=== PATIENT | male | born 1980 | race Caucasian/White ===

== ENCOUNTER 2021-03-29 09:58 | Inpatient (IN) | payer MEDICARE, MEDICAID ==
[~2021-03-29] VITALS: Ht 193 cm; Wt 123.9 kg
[~2021-03-29 09:58] MED LIST: NOCURR
[2021-03-29 12:06] LABS: BASOPHILS % (AUTO) 0.6 % (0.0-2.0); EOSINOPHILS % (AUTO) 0.9 % (1.0-6.0); HEMATOCRIT 40.2 % (41-53); HEMOGLOBIN 13.7 g/dL (13.5-17.5); LYMPHOCYTES # (AUTO) 2.3 K/uL (1.0-4.8); LYMPHOCYTES % (AUTO) 31.2 % (22.0-44.0); MEAN CORPUSCULAR HEMOGLOBIN 29.4 pg (26.0-34.0); MEAN CORPUSCULAR HGB CONC 33.9 G/dL (31.0-37.0); MEAN CORPUSCULAR VOLUME 87 fL (80-100); MONOCYTES # (AUTO) 0.5 K/uL (0.1-1.0); MONOCYTES % (AUTO) 6.8 % (2.0-9.0); NEUTROPHILS # (AUTO) 4.5 K/uL (1.8-7.7); NEUTROPHILS % (AUTO) 60.5 % (40.0-70.0); PLATELET COUNT (AUTO) 319 K/uL (150-450); RED BLOOD CELL COUNT(AUTO) 4.65 MIL/uL (4.50-5.90)
[2021-03-29 12:15] LABS: ANION GAP 7 mmol/L (8-16); CALCIUM, TOTAL 8.5 mg/dL (8.8-10.5); CARBON DIOXIDE 27 mmol/L (22-29); CHLORIDE 107 mmol/L (98-107); CREATININE 1.16 mg/dL (0.60-1.30); GLOMERULAR FILTR. RATE CALC > 60 mL/min (>60); GLUCOSE,RANDOM 89 mg/dL (70-110); POTASSIUM 4.3 mmol/L (3.5-5.1); SODIUM SERUM 141 mmol/L (136-145); UREA NITROGEN, BLOOD 13 mg/dL (7-18)
[2021-03-29 12:21] LABS: ACETAMINOPHEN < 2 mcg/mL (10-30); ALANINE AMINOTRANSFERASE 25 U/L (12-78); ALBUMIN 3.9 g/dL (3.4-5.0); ALKALINE PHOSPHATASE 69 U/L (46-116); ASPARTATE AMINOTRANSFERASE 15 U/L (15-37); BILIRUBIN,TOTAL 0.3 mg/dL (0.1-1.0); TOTAL PROTEIN, SERUM 7.8 g/dL (6.4-8.2)
[2021-03-29 12:28] LABS: SALICYLATE 0.6 mg/dL (2.8-20.0)
[2021-03-29 15:14] LABS: COVID AG,FIA SOURCE NASOPHARYNGEAL
[2021-03-29] MEDS ORDERED: HALOPERIDOL 5 MG TABLET PO PRN (17:15)
[2021-03-29] MEDS ORDERED: ZOLPIDEM TARTRATE 10 MG TABLET PO PRN (17:15)
[2021-03-30 01:12] LABS: CHOL/HDL RATIO 4.5 (4.2-7.3); CHOLESTEROL 188 mg/dL (131-200); FREE T4 (FREE THYROXINE) 0.98 ng/dL (0.76-1.46); HDL CHOLESTEROL 42 mg/dL (40-60); LDL CHOL (CALC.) 119 mg/dL (0-130); THYROID STIMULATING HORMONE 1.15 uIU/mL (0.36-3.74); TRIGLYCERIDES 135 mg/dL (15-150)
[2021-03-30] MEDS ORDERED: LOPERAMIDE HCL 2 MG CAPSULE PO PRN (07:30)
[2021-03-30] MEDS ORDERED: ALBUTEROL SULFATE HFA 90 MCG/PUFF 8 GM INHALER IH PRN (07:30)
[2021-03-30] MEDS ORDERED: DOCUSATE SODIUM 100 MG CAPSULE PO PRN (07:30)
[2021-03-30] MEDS ORDERED: MAGNESIUM HYDROXIDE SUSPENSION 30 ML UDCUP PO PRN (07:30)
[2021-03-30] MEDS ORDERED: PETROLATUM,WHITE 28 GM JELLY TP PRN (07:30)
[2021-03-30] MEDS ORDERED: GuaiFENesin/D-METHORPHAN [SUGAR-FREE] 200-20MG/10 ML SYRUP UDCUP PO PRN (07:30)
[2021-03-30] MEDS ORDERED: CloNIDine HCL 0.1 MG TABLET PO PRN (07:30)
[2021-03-30] MEDS ORDERED: NICOTINE 14 MG/24 HOUR PATCH TD PRN (07:30)
[2021-03-30] MEDS ORDERED: ONDANSETRON HCL 4 MG TABLET PO PRN (07:30)
[2021-03-30] MEDS ORDERED: ACETAMINOPHEN 325 MG TABLET PO PRN (07:30)
[2021-03-30 09:25] VITALS: BP 126/87
[2021-03-30 09:34] VITALS: BP 126/87
[2021-03-30] MEDS: IBUPROFEN 400 MG TABLET PO PRN ×2 (09:36→09:37)
[2021-03-30 09:37] VITALS: BP 126/87
[2021-03-30] MEDS ORDERED: INFLUENZA VIRUS VACCINE QVS 2021-22 (6MO+)/PF 60 MCG/0.5 ML SYRINGE IM. ONE (10:30)
[2021-03-30 16:06] VITALS: BP 104/68
[2021-03-30] MEDS: RisperiDONE 2 MG TABLET PO SCH (20:51)
[2021-03-30] MEDS: DIVALPROEX SODIUM 500 MG DR TABLET PO SCH (20:51)
[2021-03-31 07:20] LABS: BASOPHILS % (AUTO) 0.6 % (0.0-2.0); EOSINOPHILS % (AUTO) 1.5 % (1.0-6.0); HEMATOCRIT 39.8 % (41-53); HEMOGLOBIN 13.7 g/dL (13.5-17.5); LYMPHOCYTES % (AUTO) 32.3 % (22.0-44.0); MEAN CORPUSCULAR HEMOGLOBIN 29.5 pg (26.0-34.0); MEAN CORPUSCULAR HGB CONC 34.3 G/dL (31.0-37.0); MEAN CORPUSCULAR VOLUME 86 fL (80-100); MONOCYTES # (AUTO) 0.4 K/uL (0.1-1.0); MONOCYTES % (AUTO) 6.3 % (2.0-9.0); NEUTROPHILS # (AUTO) 3.7 K/uL (1.8-7.7); NEUTROPHILS % (AUTO) 59.3 % (40.0-70.0); PLATELET COUNT (AUTO) 267 K/uL (150-450); RED BLOOD CELL COUNT(AUTO) 4.63 MIL/uL (4.50-5.90); RED CELL DISTRIBUTION WIDTH 13.9 % (11.5-14.5)
[2021-03-31] MEDS: DIVALPROEX SODIUM 500 MG DR TABLET PO SCH ×2 (08:33→20:44)
[2021-03-31] MEDS: RisperiDONE 2 MG TABLET PO SCH ×2 (08:33→20:45)
[2021-03-31 08:44] VITALS: BP 118/59
[2021-03-31 16:43] VITALS: BP 138/89
[2021-04-01] MEDS: RisperiDONE 2 MG TABLET PO SCH ×2 (08:44→20:56)
[2021-04-01] MEDS: DIVALPROEX SODIUM 500 MG DR TABLET PO SCH ×2 (08:44→20:56)
[2021-04-01] MEDS: LORazepam 2 MG TABLET PO PRN (08:45)
[2021-04-01 09:26] VITALS: BP 95/61
[2021-04-01 16:09] VITALS: BP 130/99
[2021-04-02] MEDS: RisperiDONE 2 MG TABLET PO SCH ×2 (09:45→20:08)
[2021-04-02] MEDS: DIVALPROEX SODIUM 500 MG DR TABLET PO SCH ×2 (09:45→20:08)
[2021-04-02] MEDS: MAG HYDROX/AL HYDROX/SIMETH ES 30 ML SUSPENSION UDCUP PO PRN (11:39)
[2021-04-02 16:13] VITALS: BP 128/87
[2021-04-03 09:05] VITALS: BP 130/89
[2021-04-03] MEDS: RisperiDONE 2 MG TABLET PO SCH ×2 (10:40→20:19)
[2021-04-03] MEDS: DIVALPROEX SODIUM 500 MG DR TABLET PO SCH ×2 (10:40→20:19)
[2021-04-03 16:09] VITALS: BP 123/78
[2021-04-04] MEDS: MAG HYDROX/AL HYDROX/SIMETH ES 30 ML SUSPENSION UDCUP PO PRN (06:58)
[2021-04-04 08:54] VITALS: BP 110/75
[2021-04-04] MEDS: RisperiDONE 2 MG TABLET PO SCH ×2 (09:16→20:36)
[2021-04-04] MEDS: DIVALPROEX SODIUM 500 MG DR TABLET PO SCH ×2 (09:16→20:36)
[2021-04-04 09:53] LABS: COVID AG,FIA SOURCE NASAL SWAB
[2021-04-04 16:59] VITALS: BP 131/81
[2021-04-05 06:17] VITALS: BP 115/67
[2021-04-05] MEDS: RisperiDONE 2 MG TABLET PO SCH ×2 (08:12→20:47)
[2021-04-05] MEDS: DIVALPROEX SODIUM 500 MG DR TABLET PO SCH ×2 (08:12→20:47)
[2021-04-05 08:47] VITALS: BP 145/93
[2021-04-05 16:28] VITALS: BP 121/69
[2021-04-05] MEDS: MAG HYDROX/AL HYDROX/SIMETH ES 30 ML SUSPENSION UDCUP PO PRN (17:20)
[2021-04-06 08:05] VITALS: BP 113/71
[2021-04-06] MEDS: RisperiDONE 2 MG TABLET PO SCH ×2 (08:51→20:24)
[2021-04-06] MEDS: DIVALPROEX SODIUM 500 MG DR TABLET PO SCH ×2 (08:51→20:24)
[2021-04-06 16:09] VITALS: BP 131/88
[2021-04-07] MEDS: DIVALPROEX SODIUM 500 MG DR TABLET PO SCH ×2 (08:43→20:41)
[2021-04-07] MEDS: RisperiDONE 2 MG TABLET PO SCH ×2 (08:43→20:42)
[2021-04-07] MEDS: THIAMINE 100 MG TABLET PO SCH (08:43)
[2021-04-07 10:46] VITALS: BP 135/79
[2021-04-07 16:30] VITALS: BP 101/62
[2021-04-08 08:00] VITALS: BP 117/68
[2021-04-08] MEDS: DIVALPROEX SODIUM 500 MG DR TABLET PO SCH ×2 (08:22→20:48)
[2021-04-08] MEDS: THIAMINE 100 MG TABLET PO SCH (08:22)
[2021-04-08] MEDS: RisperiDONE 2 MG TABLET PO SCH ×2 (08:22→20:48)
[2021-04-08 16:28] VITALS: BP 112/68
[2021-04-09 08:07] VITALS: BP 125/69
[2021-04-09] MEDS: DIVALPROEX SODIUM 500 MG DR TABLET PO SCH ×2 (08:56→20:53)
[2021-04-09] MEDS: RisperiDONE 2 MG TABLET PO SCH ×2 (08:56→20:53)
[2021-04-09] MEDS: THIAMINE 100 MG TABLET PO SCH (08:56)
[2021-04-09 16:52] VITALS: BP 109/68
[2021-04-10 05:16] VITALS: BP 117/80
[2021-04-10 09:00] VITALS: BP 108/76
[2021-04-10] MEDS: RisperiDONE 2 MG TABLET PO SCH ×2 (09:03→20:09)
[2021-04-10] MEDS: DIVALPROEX SODIUM 500 MG DR TABLET PO SCH ×2 (09:03→20:09)
[2021-04-10] MEDS: THIAMINE 100 MG TABLET PO SCH (09:04)
[2021-04-10] MEDS: IBUPROFEN 400 MG TABLET PO PRN (12:34)
[2021-04-10 12:35] VITALS: BP 140/81
[2021-04-10 13:39] VITALS: BP 128/78
[2021-04-10 16:01] VITALS: BP 97/67
[2021-04-10] MEDS: MAG HYDROX/AL HYDROX/SIMETH ES 30 ML SUSPENSION UDCUP PO PRN (23:09)
[2021-04-11] MEDS: DIVALPROEX SODIUM 500 MG DR TABLET PO SCH ×2 (08:40→20:15)
[2021-04-11] MEDS: RisperiDONE 2 MG TABLET PO SCH ×2 (08:40→20:15)
[2021-04-11 09:50] VITALS: BP 115/55
[2021-04-11] MEDS: THIAMINE 100 MG TABLET PO SCH (10:05)
[2021-04-11] MEDS: LORazepam 2 MG TABLET PO PRN (15:55)
[2021-04-11 16:10] VITALS: BP 125/81
[2021-04-11 18:25] LABS: COVID AG,FIA SOURCE NASAL SWAB
[2021-04-12 08:30] VITALS: BP 127/66
[2021-04-12] MEDS: RisperiDONE 2 MG TABLET PO SCH ×2 (08:43→20:52)
[2021-04-12] MEDS: THIAMINE 100 MG TABLET PO SCH (08:43)
[2021-04-12] MEDS: DIVALPROEX SODIUM 500 MG DR TABLET PO SCH ×2 (08:43→20:52)
[2021-04-12 17:10] VITALS: BP 106/67
[2021-04-13 04:23] VITALS: BP 139/80
[2021-04-13 08:00] VITALS: BP 120/88
[2021-04-13] MEDS: THIAMINE 100 MG TABLET PO SCH (08:18)
[2021-04-13] MEDS: DIVALPROEX SODIUM 500 MG DR TABLET PO SCH ×2 (08:18→20:38)
[2021-04-13] MEDS: RisperiDONE 2 MG TABLET PO SCH ×2 (08:18→20:38)
[2021-04-13 16:26] VITALS: BP 115/78
[2021-04-14] MEDS: RisperiDONE 2 MG TABLET PO SCH ×2 (08:05→20:33)
[2021-04-14] MEDS: DIVALPROEX SODIUM 500 MG DR TABLET PO SCH ×2 (08:06→20:33)
[2021-04-14] MEDS: THIAMINE 100 MG TABLET PO SCH (08:06)
[2021-04-14 08:51] VITALS: BP 115/77
[2021-04-14 16:17] VITALS: BP 115/70
[2021-04-15 08:00] VITALS: BP 116/76
[2021-04-15] MEDS: DIVALPROEX SODIUM 500 MG DR TABLET PO SCH ×2 (08:02→20:35)
[2021-04-15] MEDS: THIAMINE 100 MG TABLET PO SCH (08:02)
[2021-04-15] MEDS: RisperiDONE 2 MG TABLET PO SCH ×2 (08:02→20:35)
[2021-04-15 16:13] VITALS: BP 112/74
[2021-04-16] MEDS: THIAMINE 100 MG TABLET PO SCH (08:12)
[2021-04-16] MEDS: RisperiDONE 2 MG TABLET PO SCH ×2 (08:13→20:34)
[2021-04-16] MEDS: DIVALPROEX SODIUM 500 MG DR TABLET PO SCH ×2 (08:14→20:34)
[2021-04-16 08:24] VITALS: BP 130/84
[2021-04-16 16:17] VITALS: BP 128/79
[2021-04-16] MEDS: MAG HYDROX/AL HYDROX/SIMETH ES 30 ML SUSPENSION UDCUP PO PRN (18:43)
[2021-04-17] MEDS: DIVALPROEX SODIUM 500 MG DR TABLET PO SCH (08:12)
[2021-04-17] MEDS: RisperiDONE 2 MG TABLET PO SCH (08:12)
[2021-04-17] MEDS: THIAMINE 100 MG TABLET PO SCH (08:20)
[2021-04-17 08:46] VITALS: BP 118/72
[2021-04-17] MEDS ORDERED: RISP2TAB76 PO (10:36)
[2021-04-17] MEDS ORDERED: DIVA-112 PO (10:36)
== END 2021-04-17 13:25 | disposition home or self-care (01) | DRG 885 ==
LOC: EMS 10:57 → 3EX 03-30 06:17
PROVIDERS: ADMIT Psychiatry & Neurology Psychiatry; ATTEND Psychiatry & Neurology Psychiatry
DX: F25.0 Schizoaffective disorder, bipolar type (principal); F33.2 Major depressive disorder, recurrent severe without psychotic features; R45.851 Suicidal ideations; E66.9 Obesity, unspecified; E78.5 Hyperlipidemia, unspecified; Z20.822 Contact with and (suspected) exposure to COVID-19; F41.9 Anxiety disorder, unspecified; F10.10 Alcohol abuse, uncomplicated; F17.200 Nicotine dependence, unspecified, uncomplicated; D64.9 Anemia, unspecified; Z68.32 Body mass index [BMI] 32.0-32.9, adult; Z79.899 Other long term (current) drug therapy; Z59.00 Homelessness unspecified; Z71.41 Alcohol abuse counseling and surveillance of alcoholic; Z71.6 Tobacco abuse counseling
CPT/HCPCS: 80053; 80061; 80164; 84439; 84443; 85025; 93005; 99285; G0378; G0480; G0481

== ENCOUNTER 2021-11-18 12:48 | Inpatient (IN) | payer MEDICARE, MEDICAID ==
[~2021-11-18] VITALS: Ht 193 cm; Wt 129.0 kg
[~2021-11-18 12:48] MED LIST changes: +DIVA-112 PO; -NOCURR; +RISP2TAB76 PO
[2021-11-18] MEDS ORDERED: HALOPERIDOL 5 MG TABLET PO PRN (14:45)
[2021-11-18] MEDS ORDERED: ZOLPIDEM TARTRATE 10 MG TABLET PO PRN (14:45)
[2021-11-18 15:53] LABS: APPEARANCE,URINE CLEAR (CLEAR); BILIRUBIN,URINE NEGATIVE (NEGATIVE); GLUCOSE, URINE (UA) NEGATIVE (NEGATIVE); KETONES,URINE NEGATIVE (NEGATIVE); LEUKOCYTE ESTERASE ,URINE NEGATIVE (NEGATIVE); NITRATE,URINE NEGATIVE (NEGATIVE); OCCULT BLOOD,URINE NEGATIVE (NEGATIVE); PH,URINE 5.5 (5.0-8.0); PROTEIN,URINE TRACE mg/dL (NEGATIVE); SPECIFIC GRAVITIY, URINE 1.031 (1.003-1.030); UROBILINOGEN,URINE <=1.0 mg/dL (<=1.0)
[2021-11-18 18:59] VITALS: BP 127/76
[2021-11-19 00:27] VITALS: BP 120/76
[2021-11-19 07:01] LABS: GLUCOMETER DEV NAME(LOC) POC.BV
[2021-11-19 08:00] VITALS: BP 105/62
[2021-11-19] MEDS: LORazepam 2 MG TABLET PO PRN (10:59)
[2021-11-19 12:00] VITALS: BP 105/60
[2021-11-19 14:44] VITALS: BP 105/70
[2021-11-19] MEDS ORDERED: CYANOCOBALAMIN 1,000 MCG/ML VIAL IM ONE (14:45)
[2021-11-19] MEDS ORDERED: OLANZapine 5 MG RAPDIS TABLET PO PRN (14:45)
[2021-11-19] MEDS ORDERED: ACETAMINOPHEN 325 MG TABLET PO PRN (14:45)
[2021-11-19] MEDS ORDERED: MAGNESIUM HYDROXIDE SUSPENSION 30 ML UDCUP PO PRN (14:45)
[2021-11-19] MEDS ORDERED: HydrOXYzine PAMOATE 50 MG CAPSULE PO PRN (14:45)
[2021-11-19] MEDS ORDERED: GuaiFENesin/D-METHORPHAN [SUGAR-FREE] 200-20MG/10 ML SYRUP UDCUP PO PRN (14:45)
[2021-11-19] MEDS ORDERED: LOPERAMIDE HCL 2 MG CAPSULE PO PRN (14:45)
[2021-11-19] MEDS ORDERED: MAG HYDROX/AL HYDROX/SIMETH ES 30 ML SUSPENSION UDCUP PO PRN (14:45)
[2021-11-19] MEDS ORDERED: TUBERCULIN, PURIFIED PROTEIN DERIVATIVE 5 TU/0.1 ML SYRINGE ID ONE (14:45)
[2021-11-19] MEDS ORDERED: PROMETHAZINE HCL 25 MG TABLET PO PRN (14:45)
[2021-11-19 16:11] VITALS: BP 124/64
[2021-11-19] MEDS: THIAMINE 100 MG TABLET PO SCH (16:11)
[2021-11-19] MEDS: MELATONIN 5 MG TABLET PO SCH (20:48)
[2021-11-19] MEDS ORDERED: OLANZapine 5 MG RAPDIS TABLET PO SCH (21:00)
[2021-11-20 00:19] VITALS: BP 128/67
[2021-11-20] MEDS ORDERED: IBUPROFEN 600 MG TABLET PO PRN ×2 (01:00)
[2021-11-20] MEDS ORDERED: ACETAMINOPHEN 325 MG TABLET PO PRN ×2 (01:00)
[2021-11-20 07:05] LABS: APPEARANCE,URINE HAZY (CLEAR); BILIRUBIN,URINE NEGATIVE (NEGATIVE); GLUCOSE, URINE (UA) NEGATIVE (NEGATIVE); KETONES,URINE NEGATIVE (NEGATIVE); LEUKOCYTE ESTERASE ,URINE NEGATIVE (NEGATIVE); NITRATE,URINE NEGATIVE (NEGATIVE); OCCULT BLOOD,URINE NEGATIVE (NEGATIVE); PROTEIN,URINE TRACE mg/dL (NEGATIVE); SPECIFIC GRAVITIY, URINE 1.027 (1.003-1.030); UROBILINOGEN,URINE <=1.0 mg/dL (<=1.0)
[2021-11-20 07:05] LABS: BASOPHILS % (AUTO) 0.6 % (0.0-2.0); EOSINOPHILS % (AUTO) 2.4 % (1.0-6.0); HEMATOCRIT 38.9 % (41-53); HEMOGLOBIN 13.5 g/dL (13.5-17.5); LYMPHOCYTES # (AUTO) 2.1 K/uL (1.0-4.8); LYMPHOCYTES % (AUTO) 37.5 % (22.0-44.0); MEAN CORPUSCULAR HEMOGLOBIN 28.8 pg (26.0-34.0); MEAN CORPUSCULAR HGB CONC 34.8 G/dL (31.0-37.0); MEAN CORPUSCULAR VOLUME 83 fL (80-100); MONOCYTES # (AUTO) 0.5 K/uL (0.1-1.0); MONOCYTES % (AUTO) 8.9 % (2.0-9.0); NEUTROPHILS # (AUTO) 2.8 K/uL (1.8-7.7); NEUTROPHILS % (AUTO) 50.6 % (40.0-70.0); PLATELET COUNT (AUTO) 311 K/uL (150-450); RED CELL DISTRIBUTION WIDTH 13.5 % (11.5-14.5)
[2021-11-20 07:16] LABS: AMPHET/METH SCREEN,URINE NEGATIVE (NEGATIVE); BARBITURATE SCREEN, URINE NEGATIVE (NEGATIVE); BENZODIAZEPINES SCREEN,URINE NEGATIVE (NEGATIVE); CANNABINOID SCREEN,URINE NEGATIVE (NEGATIVE); COCAINE SCREEN,URINE NEGATIVE (NEGATIVE); METHADONE SCREEN, URINE NEGATIVE (NEGATIVE); OPIATE SCREEN,URINE NEGATIVE (NEGATIVE)
[2021-11-20 07:17] LABS: PHENCYCLIDINE SCREEN,URINE NEGATIVE (NEGATIVE)
[2021-11-20 07:22] LABS: HEMOGLOBIN A1C 5.6 % (3.8-5.6)
[2021-11-20 07:45] LABS: ALANINE AMINOTRANSFERASE 46 U/L (12-78); ALBUMIN 3.5 g/dL (3.4-5.0); ALKALINE PHOSPHATASE 69 U/L (46-116); ANION GAP 9 mmol/L (8-16); ASPARTATE AMINOTRANSFERASE 23 U/L (15-37); BILIRUBIN,TOTAL 0.2 mg/dL (0.1-1.0); CALCIUM, TOTAL 8.8 mg/dL (8.8-10.5); CARBON DIOXIDE 26 mmol/L (22-29); CHLORIDE 104 mmol/L (98-107); CHOLESTEROL 154 mg/dL (131-200); CREATININE 1.02 mg/dL (0.60-1.30); GLOMERULAR FILTR. RATE CALC > 60 mL/min (>60); GLUCOSE,RANDOM 88 mg/dL (70-110); SODIUM SERUM 139 mmol/L (136-145); TOTAL PROTEIN, SERUM 7.1 g/dL (6.4-8.2); TRIGLYCERIDES 139 mg/dL (15-150); UREA NITROGEN, BLOOD 9 mg/dL (7-18)
[2021-11-20 07:46] LABS: CHOL/HDL RATIO 4.8 (4.2-7.3); FREE T4 (FREE THYROXINE) 1.07 ng/dL (0.76-1.46); HDL CHOLESTEROL 32 mg/dL (40-60); LDL CHOL (CALC.) 94 mg/dL (0-130); THYROID STIMULATING HORMONE 2.53 uIU/mL (0.36-3.74)
[2021-11-20 08:06] LABS: BACTERIA,URINE Few /HPF (None Seen); RBC,URINE None Seen /HPF (0-2); SQUAMOUS EPITHELIAL CELL,UR Few /LPF (None Seen); WBC,URINE None Seen /HPF (0-5)
[2021-11-20 08:32] VITALS: BP 96/58
[2021-11-20] MEDS: OMEGA-3/DHA/EPA/FISH OIL 1,000 MG CAPSULE PO SCH (08:36)
[2021-11-20] MEDS: THIAMINE 100 MG TABLET PO SCH ×2 (08:36→17:05)
[2021-11-20] MEDS: FOLIC ACID 1 MG TABLET PO SCH (08:37)
[2021-11-20] MEDS: MULTIVITAMINS WITH MINERALS, THERAPEUTIC TABLET PO SCH (08:37)
[2021-11-20] MEDS: NALTREXONE HCL 50 MG TABLET PO SCH (08:37)
[2021-11-20] MEDS: FLUoxetine HCL 20 MG CAPSULE PO SCH (08:37)
[2021-11-20 16:12] VITALS: BP 103/65
[2021-11-20] MEDS: MELATONIN 5 MG TABLET PO SCH (21:01)
[2021-11-20] MEDS: OLANZapine 10 MG RAPDIS TABLET PO SCH (21:02)
[2021-11-21 00:15] VITALS: BP 104/63
[2021-11-21 08:23] VITALS: BP 109/72
[2021-11-21] MEDS: FLUoxetine HCL 20 MG CAPSULE PO SCH (09:05)
[2021-11-21] MEDS: FOLIC ACID 1 MG TABLET PO SCH (09:05)
[2021-11-21] MEDS: MULTIVITAMINS WITH MINERALS, THERAPEUTIC TABLET PO SCH (09:05)
[2021-11-21] MEDS: THIAMINE 100 MG TABLET PO SCH ×2 (09:05→16:17)
[2021-11-21] MEDS: NALTREXONE HCL 50 MG TABLET PO SCH (09:05)
[2021-11-21] MEDS: OMEGA-3/DHA/EPA/FISH OIL 1,000 MG CAPSULE PO SCH (09:05)
[2021-11-21 14:46] VITALS: BP 104/66
[2021-11-21] MEDS: LORazepam 2 MG TABLET PO PRN (14:47)
[2021-11-21 16:13] VITALS: BP 109/67
[2021-11-21] MEDS: OLANZapine 10 MG RAPDIS TABLET PO SCH (20:09)
[2021-11-21] MEDS: MELATONIN 5 MG TABLET PO SCH (20:09)
[2021-11-22 00:23] VITALS: BP 110/68
[2021-11-22] MEDS: NALTREXONE HCL 50 MG TABLET PO SCH (08:48)
[2021-11-22] MEDS: FLUoxetine HCL 20 MG CAPSULE PO SCH (08:48)
[2021-11-22] MEDS: MULTIVITAMINS WITH MINERALS, THERAPEUTIC TABLET PO SCH (08:48)
[2021-11-22] MEDS: OMEGA-3/DHA/EPA/FISH OIL 1,000 MG CAPSULE PO SCH (08:48)
[2021-11-22] MEDS: FOLIC ACID 1 MG TABLET PO SCH (08:48)
[2021-11-22] MEDS: THIAMINE 100 MG TABLET PO SCH ×2 (08:49→16:16)
[2021-11-22 08:50] VITALS: BP 127/90
[2021-11-22] MEDS ORDERED: BISMUTH SUBSALICYLATE 262 MG CHEWABLE TABLET CHEW PRN (10:00)
[2021-11-22] MEDS ORDERED: LOPERAMIDE HCL 2 MG CAPSULE PO PRN (14:45)
[2021-11-22 16:15] VITALS: BP 121/68
[2021-11-22] MEDS: MELATONIN 5 MG TABLET PO SCH (20:23)
[2021-11-22] MEDS: OLANZapine 10 MG RAPDIS TABLET PO SCH (20:24)
[2021-11-23 01:38] VITALS: BP 125/77
[2021-11-23 03:06] LABS: HEPATITIS C AB (EIA) <0.1 s/co ratio (0.0-0.9)
[2021-11-23 08:40] VITALS: BP 123/82
[2021-11-23] MEDS: NALTREXONE HCL 50 MG TABLET PO SCH (08:55)
[2021-11-23] MEDS: OMEGA-3/DHA/EPA/FISH OIL 1,000 MG CAPSULE PO SCH (08:56)
[2021-11-23] MEDS: FLUoxetine HCL 20 MG CAPSULE PO SCH (08:56)
[2021-11-23] MEDS: MULTIVITAMINS WITH MINERALS, THERAPEUTIC TABLET PO SCH (08:56)
[2021-11-23] MEDS: FOLIC ACID 1 MG TABLET PO SCH (08:56)
[2021-11-23] MEDS: THIAMINE 100 MG TABLET PO SCH ×2 (08:56→17:04)
[2021-11-23] MEDS: LORazepam 2 MG TABLET PO PRN (17:14)
[2021-11-23 17:24] VITALS: BP 115/60
[2021-11-23] MEDS: OLANZapine 10 MG RAPDIS TABLET PO SCH (21:30)
[2021-11-23] MEDS: MELATONIN 5 MG TABLET PO SCH (21:30)
[2021-11-23] MEDS: DIVALPROEX SODIUM 500 MG ER TABLET PO SCH (21:30)
[2021-11-24 05:28] VITALS: BP 107/67
[2021-11-24] MEDS: NALTREXONE HCL 50 MG TABLET PO SCH (08:00)
[2021-11-24] MEDS: OMEGA-3/DHA/EPA/FISH OIL 1,000 MG CAPSULE PO SCH (08:00)
[2021-11-24] MEDS: MULTIVITAMINS WITH MINERALS, THERAPEUTIC TABLET PO SCH (08:00)
[2021-11-24] MEDS: FOLIC ACID 1 MG TABLET PO SCH (08:00)
[2021-11-24] MEDS: THIAMINE 100 MG TABLET PO SCH ×2 (08:00→16:49)
[2021-11-24] MEDS: FLUoxetine HCL 20 MG CAPSULE PO SCH (08:00)
[2021-11-24 08:31] VITALS: BP 110/66
[2021-11-24 16:56] VITALS: BP 125/70
[2021-11-24] MEDS: MELATONIN 5 MG TABLET PO SCH (21:31)
[2021-11-24] MEDS: OLANZapine 10 MG RAPDIS TABLET PO SCH (21:31)
[2021-11-24] MEDS: DIVALPROEX SODIUM 500 MG ER TABLET PO SCH (21:31)
[2021-11-25 02:00] VITALS: BP 112/69
[2021-11-25 08:57] VITALS: BP 112/62
[2021-11-25] MEDS: FLUoxetine HCL 20 MG CAPSULE PO SCH (09:00)
[2021-11-25] MEDS: NALTREXONE HCL 50 MG TABLET PO SCH (09:00)
[2021-11-25] MEDS: MULTIVITAMINS WITH MINERALS, THERAPEUTIC TABLET PO SCH (09:00)
[2021-11-25] MEDS: THIAMINE 100 MG TABLET PO SCH ×2 (09:00→16:33)
[2021-11-25] MEDS: FOLIC ACID 1 MG TABLET PO SCH (09:00)
[2021-11-25] MEDS: OMEGA-3/DHA/EPA/FISH OIL 1,000 MG CAPSULE PO SCH (09:01)
[2021-11-25 14:27] LABS: GLUCOMETER DEV NAME(LOC) POC.BV
[2021-11-25 16:11] VITALS: BP 129/70
[2021-11-25] MEDS: OLANZapine 10 MG RAPDIS TABLET PO SCH (20:34)
[2021-11-25] MEDS: DIVALPROEX SODIUM 500 MG ER TABLET PO SCH (20:34)
[2021-11-25] MEDS: MELATONIN 5 MG TABLET PO SCH (20:34)
[2021-11-25] MEDS ORDERED: BISACODYL 5 MG EC TABLET PO PRN (21:45)
[2021-11-26 01:00] VITALS: BP 136/64
[2021-11-26] MEDS: MULTIVITAMINS WITH MINERALS, THERAPEUTIC TABLET PO SCH (08:07)
[2021-11-26] MEDS: FLUoxetine HCL 20 MG CAPSULE PO SCH (08:07)
[2021-11-26] MEDS: OMEGA-3/DHA/EPA/FISH OIL 1,000 MG CAPSULE PO SCH (08:07)
[2021-11-26] MEDS: NALTREXONE HCL 50 MG TABLET PO SCH (08:07)
[2021-11-26] MEDS: FOLIC ACID 1 MG TABLET PO SCH (08:07)
[2021-11-26] MEDS: THIAMINE 100 MG TABLET PO SCH ×2 (08:07→16:17)
[2021-11-26 09:00] VITALS: BP 125/72
[2021-11-26 16:34] VITALS: BP 106/63
[2021-11-26] MEDS: OLANZapine 10 MG RAPDIS TABLET PO SCH (20:10)
[2021-11-26] MEDS: MELATONIN 5 MG TABLET PO SCH (20:10)
[2021-11-26] MEDS: DIVALPROEX SODIUM 500 MG ER TABLET PO SCH (20:10)
[2021-11-27 00:11] VITALS: BP 110/64
[2021-11-27 08:22] VITALS: BP 129/75
[2021-11-27] MEDS: OMEGA-3/DHA/EPA/FISH OIL 1,000 MG CAPSULE PO SCH (08:44)
[2021-11-27] MEDS: MULTIVITAMINS WITH MINERALS, THERAPEUTIC TABLET PO SCH (08:45)
[2021-11-27] MEDS: FLUoxetine HCL 20 MG CAPSULE PO SCH (08:45)
[2021-11-27] MEDS: FOLIC ACID 1 MG TABLET PO SCH (08:45)
[2021-11-27] MEDS: THIAMINE 100 MG TABLET PO SCH ×2 (08:45→16:41)
[2021-11-27] MEDS: NALTREXONE HCL 50 MG TABLET PO SCH (08:45)
[2021-11-27 16:12] VITALS: BP 102/61
[2021-11-27] MEDS: MELATONIN 5 MG TABLET PO SCH (20:38)
[2021-11-27] MEDS: OLANZapine 10 MG RAPDIS TABLET PO SCH (20:39)
[2021-11-27] MEDS: DIVALPROEX SODIUM 500 MG ER TABLET PO SCH (20:49)
[2021-11-28 04:13] VITALS: BP 126/88
[2021-11-28 08:53] VITALS: BP 150/91
[2021-11-28] MEDS: FLUoxetine HCL 20 MG CAPSULE PO SCH (08:59)
[2021-11-28] MEDS: OMEGA-3/DHA/EPA/FISH OIL 1,000 MG CAPSULE PO SCH (08:59)
[2021-11-28] MEDS: FOLIC ACID 1 MG TABLET PO SCH (09:00)
[2021-11-28] MEDS: NALTREXONE HCL 50 MG TABLET PO SCH (09:00)
[2021-11-28] MEDS: THIAMINE 100 MG TABLET PO SCH ×2 (09:00→17:46)
[2021-11-28] MEDS: MULTIVITAMINS WITH MINERALS, THERAPEUTIC TABLET PO SCH (09:00)
[2021-11-28 16:44] VITALS: BP 130/76
[2021-11-28 17:36] LABS: GLUCOMETER DEV NAME(LOC) POC.BV
[2021-11-28] MEDS: MELATONIN 5 MG TABLET PO SCH (20:51)
[2021-11-28] MEDS: OLANZapine 10 MG RAPDIS TABLET PO SCH (20:51)
[2021-11-28] MEDS: DIVALPROEX SODIUM 500 MG ER TABLET PO SCH (20:51)
[2021-11-29 05:32] VITALS: BP 127/82
[2021-11-29] MEDS: FLUoxetine HCL 20 MG CAPSULE PO SCH (08:52)
[2021-11-29] MEDS: OMEGA-3/DHA/EPA/FISH OIL 1,000 MG CAPSULE PO SCH (08:52)
[2021-11-29] MEDS: NALTREXONE HCL 50 MG TABLET PO SCH (08:52)
[2021-11-29] MEDS: MULTIVITAMINS WITH MINERALS, THERAPEUTIC TABLET PO SCH (08:52)
[2021-11-29] MEDS: THIAMINE 100 MG TABLET PO SCH (08:52)
[2021-11-29] MEDS: FOLIC ACID 1 MG TABLET PO SCH (08:52)
[2021-11-29 09:35] VITALS: BP 110/76
[2021-11-29 16:21] VITALS: BP 114/62
[2021-11-29] MEDS: DIVALPROEX SODIUM 500 MG ER TABLET PO SCH (21:09)
[2021-11-29] MEDS: OLANZapine 10 MG RAPDIS TABLET PO SCH (21:09)
[2021-11-29] MEDS: MELATONIN 5 MG TABLET PO SCH (21:09)
[2021-11-30 01:32] VITALS: BP 126/90
[2021-11-30 08:20] VITALS: BP 128/75
[2021-11-30] MEDS: MULTIVITAMINS WITH MINERALS, THERAPEUTIC TABLET PO SCH (08:23)
[2021-11-30] MEDS: FLUoxetine HCL 20 MG CAPSULE PO SCH (08:23)
[2021-11-30] MEDS: NALTREXONE HCL 50 MG TABLET PO SCH (08:23)
[2021-11-30] MEDS: OMEGA-3/DHA/EPA/FISH OIL 1,000 MG CAPSULE PO SCH (08:23)
[2021-11-30 08:41] VITALS: BP 128/75
[2021-11-30 16:11] VITALS: BP 112/68
[2021-11-30] MEDS: OLANZapine 10 MG RAPDIS TABLET PO SCH (20:09)
[2021-11-30] MEDS: DIVALPROEX SODIUM 500 MG ER TABLET PO SCH (20:09)
[2021-11-30] MEDS: MELATONIN 5 MG TABLET PO SCH (20:09)
[2021-12-01 05:51] VITALS: BP 121/88
[2021-12-01 08:23] VITALS: BP 117/76
[2021-12-01] MEDS: MULTIVITAMINS WITH MINERALS, THERAPEUTIC TABLET PO SCH (08:49)
[2021-12-01] MEDS: NALTREXONE HCL 50 MG TABLET PO SCH (08:49)
[2021-12-01] MEDS: OMEGA-3/DHA/EPA/FISH OIL 1,000 MG CAPSULE PO SCH (08:49)
[2021-12-01] MEDS: FLUoxetine HCL 20 MG CAPSULE PO SCH (08:49)
[2021-12-01 16:30] VITALS: BP 115/62
[2021-12-01] MEDS: DIVALPROEX SODIUM 500 MG ER TABLET PO SCH (21:00)
[2021-12-01] MEDS: MELATONIN 5 MG TABLET PO SCH (21:00)
[2021-12-01] MEDS: OLANZapine 10 MG RAPDIS TABLET PO SCH (21:00)
[2021-12-01 22:11] LABS: GLUCOMETER DEV NAME(LOC) POC.BV
[2021-12-02] VITALS: BP 122/89
[2021-12-02 07:03] LABS: ALBUMIN 3.4 g/dL (3.4-5.0); BILIRUBIN,DIRECT 0.1 mg/dL (0.00-0.20); BILIRUBIN,TOTAL 0.4 mg/dL (0.1-1.0)
[2021-12-02 07:12] LABS: BASOPHILS % (AUTO) 0.3 % (0.0-2.0); EOSINOPHILS % (AUTO) 1.2 % (1.0-6.0); HEMATOCRIT 40.1 % (41-53); HEMOGLOBIN 13.8 g/dL (13.5-17.5); LYMPHOCYTES # (AUTO) 1.3 K/uL (1.0-4.8); LYMPHOCYTES % (AUTO) 17.1 % (22.0-44.0); MEAN CORPUSCULAR HEMOGLOBIN 28.7 pg (26.0-34.0); MEAN CORPUSCULAR HGB CONC 34.3 G/dL (31.0-37.0); MEAN CORPUSCULAR VOLUME 84 fL (80-100); MONOCYTES # (AUTO) 0.4 K/uL (0.1-1.0); NEUTROPHILS # (AUTO) 5.8 K/uL (1.8-7.7); NEUTROPHILS % (AUTO) 76.4 % (40.0-70.0); PLATELET COUNT (AUTO) 210 K/uL (150-450); RED BLOOD CELL COUNT(AUTO) 4.79 MIL/uL (4.50-5.90)
[2021-12-02 08:18] VITALS: BP 114/69
[2021-12-02] MEDS: NALTREXONE HCL 50 MG TABLET PO SCH (09:16)
[2021-12-02] MEDS: OMEGA-3/DHA/EPA/FISH OIL 1,000 MG CAPSULE PO SCH (09:17)
[2021-12-02] MEDS: FLUoxetine HCL 20 MG CAPSULE PO SCH (09:17)
[2021-12-02] MEDS: MULTIVITAMINS WITH MINERALS, THERAPEUTIC TABLET PO SCH (09:17)
[2021-12-02 16:03] VITALS: BP 116/67
[2021-12-02] MEDS: DIVALPROEX SODIUM 500 MG ER TABLET PO SCH (20:58)
[2021-12-02] MEDS: OLANZapine 10 MG RAPDIS TABLET PO SCH (20:58)
[2021-12-02] MEDS: MELATONIN 5 MG TABLET PO SCH (20:58)
[2021-12-03 00:21] VITALS: BP 116/94
[2021-12-03] MEDS: MULTIVITAMINS WITH MINERALS, THERAPEUTIC TABLET PO SCH (08:32)
[2021-12-03] MEDS: OMEGA-3/DHA/EPA/FISH OIL 1,000 MG CAPSULE PO SCH (08:32)
[2021-12-03] MEDS: NALTREXONE HCL 50 MG TABLET PO SCH (08:32)
[2021-12-03] MEDS: FLUoxetine HCL 20 MG CAPSULE PO SCH (08:33)
[2021-12-03 08:46] VITALS: BP 120/67
[2021-12-03] MEDS ORDERED: OMEG-108 PO (12:17)
[2021-12-03] MEDS ORDERED: DIVA-80 PO (12:17)
[2021-12-03] MEDS ORDERED: MELA5TAB40 PO (12:17)
[2021-12-03] MEDS ORDERED: NALT50TA PO (12:17)
[2021-12-03] MEDS ORDERED: PROZ20 PO (12:17)
[2021-12-03] MEDS ORDERED: OLAN10TA26 PO (12:17)
== END 2021-12-03 13:30 | disposition home or self-care (01) | DRG 885 ==
LOC: EMS 12:48 → B2X 17:21
PROVIDERS: ADMIT Psychiatry & Neurology Psychiatry; ATTEND Psychiatry & Neurology Psychiatry
DX: F25.9 Schizoaffective disorder, unspecified (principal); R45.851 Suicidal ideations; F41.9 Anxiety disorder, unspecified; Z20.822 Contact with and (suspected) exposure to COVID-19; G47.00 Insomnia, unspecified; J44.9 Chronic obstructive pulmonary disease, unspecified; K59.00 Constipation, unspecified; Z55.9 Problems related to education and literacy, unspecified; Z59.9 Problem related to housing and economic circumstances, unspecified; Z63.9 Problem related to primary support group, unspecified; Z65.3 Problems related to other legal circumstances; Z79.899 Other long term (current) drug therapy; Z87.891 Personal history of nicotine dependence; Z91.19 Patient's noncompliance with other medical treatment and regimen
CPT/HCPCS: 80053; 80061; 80074; 80076; 80164; 80307; 81001; 81003; 83036; 84439; 84443; 85025; 86592; 87081; 99285; J3420; Q9967

== ENCOUNTER 2023-01-12 18:10 | Emergency (ER) | payer MEDICARE, MEDICAID ==
[~2023-01-12] VITALS: Ht 193 cm; Wt 136.4 kg
[~2023-01-12 18:10] MED LIST changes: -DIVA-112 PO; +DIVA500T53 PO; +MELA5TAB40 PO; +NALT50TA PO; +OLAN10TA26 PO; +OMEG-135 PO; +PROZ20 PO; -RISP2TAB76 PO
[2023-01-12 21:58] VITALS: BP 117/60; PULSE 86; RESP 15; TEMP 98.4
[2023-01-13] MEDS ORDERED: DIPHENOXYLATE/ATROP 2.5-0.025 MG TABLET PO ONE
[2023-01-13] MEDS ORDERED: SODIUM CHLORIDE 0.9% 1,000 ML IV ONE
[2023-01-13] MEDS ORDERED: ONDANSETRON HCL 4 MG/2 ML VIAL IVP ONE
[2023-01-13 00:24] LABS: BASOPHILS % (AUTO) 0.5 % (0.0-2.0); EOSINOPHILS % (AUTO) 1.7 % (1.0-6.0); HEMATOCRIT 35.8 % (41-53); HEMOGLOBIN 12.1 g/dL (13.5-17.5); LYMPHOCYTES # (AUTO) 1.5 K/uL (1.0-4.8); LYMPHOCYTES % (AUTO) 27.8 % (22.0-44.0); MEAN CORPUSCULAR HEMOGLOBIN 28.5 pg (26.0-34.0); MEAN CORPUSCULAR HGB CONC 33.8 G/dL (31.0-37.0); MEAN CORPUSCULAR VOLUME 84 fL (80-100); MONOCYTES # (AUTO) 0.7 K/uL (0.1-1.0); MONOCYTES % (AUTO) 12.5 % (2.0-9.0); NEUTROPHILS # (AUTO) 3.2 K/uL (1.8-7.7); NEUTROPHILS % (AUTO) 57.5 % (40.0-70.0); PLATELET COUNT (AUTO) 245 K/uL (150-450); RED BLOOD CELL COUNT(AUTO) 4.25 MIL/uL (4.50-5.90); RED CELL DISTRIBUTION WIDTH 14.6 % (11.5-14.5); WHITE BLOOD COUNT (AUTO) 5.5 K/uL (4.5-11.0)
[2023-01-13 00:48] LABS: ANION GAP 10 mmol/L (8-16); CALCIUM, TOTAL 8.1 mg/dL (8.8-10.5); CARBON DIOXIDE 26 mmol/L (22-29); CHLORIDE 104 mmol/L (98-107); CREATININE 1.13 mg/dL (0.60-1.30); GLOMERULAR FILTR. RATE CALC > 60 mL/min (>60); GLUCOSE,RANDOM 91 mg/dL (70-110); POTASSIUM 3.5 mmol/L (3.5-5.1); SODIUM SERUM 140 mmol/L (136-145); UREA NITROGEN, BLOOD 13 mg/dL (7-18)
[2023-01-13 00:54] LABS: ALANINE AMINOTRANSFERASE 32 U/L (12-78); ALBUMIN 3.2 g/dL (3.4-5.0); ALKALINE PHOSPHATASE 59 U/L (46-116); ASPARTATE AMINOTRANSFERASE 21 U/L (15-37); BILIRUBIN,TOTAL 0.3 mg/dL (0.1-1.0); LIPASE 23 U/L (16-77); TOTAL PROTEIN, SERUM 6.7 g/dL (6.4-8.2)
== END 2023-01-13 01:45 | disposition home or self-care (01) ==
LOC: EMS 18:11
DX: R19.7 Diarrhea, unspecified (principal); F32.A Depression, unspecified; F17.210 Nicotine dependence, cigarettes, uncomplicated
CPT/HCPCS: 80053; 83690; 85025; 99284

== ENCOUNTER 2023-01-14 10:34 | Inpatient (IN) | payer OTHER, MEDICAID ==
[~2023-01-14] VITALS: Ht 188 cm; Wt 133.4 kg
[2023-01-14] MEDS ORDERED: HALOPERIDOL LACTATE 5 MG/ML VIAL IM ONE (11:00)
[2023-01-14] MEDS ORDERED: LORazepam 2 MG/ML VIAL IM ONE (11:00)
[2023-01-14] MEDS ORDERED: DiphenhydrAMINE HCL 50 MG/ML VIAL IM ONE (11:00)
[2023-01-14] MEDS ORDERED: ZIPRASIDONE MESYLATE 20 MG/VIAL IM ONE (12:15)
[2023-01-14] MEDS ORDERED: ChlorproMAZINE HCL 50 MG/2 ML AMP IM ONE (14:45)
[2023-01-15] MEDS ORDERED: PETROLATUM,WHITE 28 GM JELLY TP PRN (05:00)
[2023-01-15] MEDS ORDERED: DOCUSATE SODIUM 100 MG CAPSULE PO PRN (05:00)
[2023-01-15] MEDS ORDERED: ONDANSETRON HCL 4 MG TABLET PO PRN (05:00)
[2023-01-15] MEDS ORDERED: ACETAMINOPHEN 325 MG TABLET PO PRN (05:00)
[2023-01-15] MEDS ORDERED: MAGNESIUM HYDROXIDE SUSPENSION 30 ML UDCUP PO PRN (05:00)
[2023-01-15] MEDS ORDERED: BENZOCAINE/MENTHOL LOZENGE PO PRN (05:00)
[2023-01-15] MEDS ORDERED: OMEPRAZOLE 20 MG CAPSULE PO PRN (05:00)
[2023-01-15] MEDS ORDERED: CloNIDine HCL 0.1 MG TABLET PO PRN (05:00)
[2023-01-15] MEDS ORDERED: ALBUTEROL SULFATE HFA 90 MCG/PUFF 8 GM INHALER IH PRN (05:00)
[2023-01-15] MEDS ORDERED: LOPERAMIDE HCL 2 MG CAPSULE PO PRN (05:00)
[2023-01-15 05:10] VITALS: BP 147/85; PULSE 89; RESP 20; TEMP 98.1; O2SAT 96
[2023-01-15] MEDS: IBUPROFEN 600 MG TABLET PO PRN ×2 (05:10→15:44)
[2023-01-15 08:37] VITALS: BP 119/90; PULSE 106; RESP 18; TEMP 97.5; O2SAT 95
[2023-01-15 09:41] LABS: GLUCOMETER DEV NAME(LOC) POC.BV
[2023-01-15] MEDS: MAG HYDROX/AL HYDROX/SIMETH ES 30 ML SUSPENSION UDCUP PO PRN ×2 (13:35→23:55)
[2023-01-15] MEDS: LORazepam 2 MG TABLET PO PRN ×2 (15:43→20:21)
[2023-01-15 15:44] VITALS: RESP 18
[2023-01-15 16:43] VITALS: RESP 18
[2023-01-15] MEDS: OLANZapine 10 MG TABLET PO SCH (20:20)
[2023-01-15] MEDS: ZOLPIDEM TARTRATE 10 MG TABLET PO PRN (20:21)
[2023-01-15] MEDS: DIVALPROEX SODIUM 500 MG DR TABLET PO SCH (20:21)
[2023-01-15 20:51] VITALS: BP 143/85; PULSE 100; RESP 18; TEMP 98.1; O2SAT 98
[2023-01-16] MEDS: IBUPROFEN 600 MG TABLET PO PRN (04:05)
[2023-01-16 04:06] VITALS: RESP 18; O2SAT 98
[2023-01-16] MEDS: LORazepam 2 MG TABLET PO PRN ×2 (07:45→21:53)
[2023-01-16] MEDS: HALOPERIDOL 5 MG TABLET PO PRN (07:45)
[2023-01-16] MEDS: FLUoxetine HCL 20 MG CAPSULE PO SCH (08:04)
[2023-01-16] MEDS: NALTREXONE HCL 50 MG TABLET PO SCH (08:04)
[2023-01-16 08:19] LABS: BASOPHILS % (AUTO) 0.3 % (0.0-2.0); EOSINOPHILS % (AUTO) 0.6 % (1.0-6.0); HEMATOCRIT 35.2 % (41-53); HEMOGLOBIN 11.8 g/dL (13.5-17.5); LYMPHOCYTES # (AUTO) 2.2 K/uL (1.0-4.8); LYMPHOCYTES % (AUTO) 16.8 % (22.0-44.0); MEAN CORPUSCULAR HEMOGLOBIN 28.3 pg (26.0-34.0); MEAN CORPUSCULAR HGB CONC 33.6 G/dL (31.0-37.0); MEAN CORPUSCULAR VOLUME 85 fL (80-100); MONOCYTES # (AUTO) 1.3 K/uL (0.1-1.0); NEUTROPHILS # (AUTO) 9.3 K/uL (1.8-7.7); NEUTROPHILS % (AUTO) 72.3 % (40.0-70.0); PLATELET COUNT (AUTO) 371 K/uL (150-450); RED BLOOD CELL COUNT(AUTO) 4.17 MIL/uL (4.50-5.90); RED CELL DISTRIBUTION WIDTH 14.4 % (11.5-14.5)
[2023-01-16 08:43] VITALS: BP 105/60; PULSE 100; RESP 17; TEMP 97.6; O2SAT 92
[2023-01-16 08:43] LABS: HEMOGLOBIN A1C 5.4 % (3.8-5.6)
[2023-01-16 09:05] LABS: ALANINE AMINOTRANSFERASE 38 U/L (12-78); ALBUMIN 3.2 g/dL (3.4-5.0); ALKALINE PHOSPHATASE 70 U/L (46-116); ANION GAP 13 mmol/L (8-16); ASPARTATE AMINOTRANSFERASE 45 U/L (15-37); BILIRUBIN,TOTAL 0.4 mg/dL (0.1-1.0); CALCIUM, TOTAL 8.3 mg/dL (8.8-10.5); CARBON DIOXIDE 23 mmol/L (22-29); CHLORIDE 103 mmol/L (98-107); CHOL/HDL RATIO 3.7 (4.2-7.3); CHOLESTEROL 127 mg/dL (131-200); CREATININE 1.09 mg/dL (0.60-1.30); FREE T4 (FREE THYROXINE) 1.41 ng/dL (0.76-1.46); GLOMERULAR FILTR. RATE CALC > 60 mL/min (>60); GLUCOSE,RANDOM 96 mg/dL (70-110); HDL CHOLESTEROL 34 mg/dL (40-60); LDL CHOL (CALC.) 70 mg/dL (0-130); POTASSIUM 4.1 mmol/L (3.5-5.1); SODIUM SERUM 139 mmol/L (136-145); THYROID STIMULATING HORMONE 1.97 uIU/mL (0.36-3.74); TOTAL PROTEIN, SERUM 7.1 g/dL (6.4-8.2); TRIGLYCERIDES 114 mg/dL (15-150)
[2023-01-16] MEDS ORDERED: HALOPERIDOL LACTATE 5 MG/ML VIAL ONE (09:32)
[2023-01-16] MEDS ORDERED: LORazepam 2 MG/ML VIAL ONE (09:32)
[2023-01-16] MEDS ORDERED: DiphenhydrAMINE HCL 50 MG/ML VIAL ONE (09:33)
[2023-01-16] MEDS ORDERED: LORazepam 2 MG/ML VIAL IM ONE (10:30)
[2023-01-16] MEDS ORDERED: HALOPERIDOL LACTATE 5 MG/ML VIAL IM ONE (10:30)
[2023-01-16] MEDS ORDERED: DiphenhydrAMINE HCL 50 MG/ML VIAL IM ONE (10:30)
[2023-01-16] MEDS ORDERED: ChlorproMAZINE HCL 50 MG/2 ML AMP ONE (10:57)
[2023-01-16] MEDS ORDERED: BUPRENORPHINE HCL/NALOXONE HCL 2-0.5 MG SUBLINGUAL TABLET SL SCH (17:15)
[2023-01-16 20:49] VITALS: BP 147/67; PULSE 76; RESP 18; TEMP 98.2; O2SAT 98
[2023-01-16] MEDS: OLANZapine 10 MG TABLET PO SCH (21:53)
[2023-01-16] MEDS: ZOLPIDEM TARTRATE 10 MG TABLET PO PRN (21:53)
[2023-01-16] MEDS: DIVALPROEX SODIUM 500 MG DR TABLET PO SCH (21:53)
[2023-01-17 08:20] VITALS: BP 109/73; PULSE 85; RESP 18; TEMP 98.6; O2SAT 96
[2023-01-17] MEDS: LORazepam 2 MG TABLET PO PRN (08:52)
[2023-01-17] MEDS: FLUoxetine HCL 20 MG CAPSULE PO SCH (08:53)
[2023-01-17] MEDS: NALTREXONE HCL 50 MG TABLET PO SCH (08:53)
[2023-01-17] MEDS: DIVALPROEX SODIUM 500 MG DR TABLET PO SCH (20:02)
[2023-01-17] MEDS: OLANZapine 10 MG TABLET PO SCH (20:02)
[2023-01-17 20:30] VITALS: BP 133/76; PULSE 100; RESP 19; TEMP 97.3; O2SAT 94
[2023-01-18] MEDS: IBUPROFEN 600 MG TABLET PO PRN (06:55)
[2023-01-18 07:55] VITALS: RESP 18
[2023-01-18] MEDS: NALTREXONE HCL 50 MG TABLET PO SCH (08:08)
[2023-01-18] MEDS: FLUoxetine HCL 20 MG CAPSULE PO SCH (08:08)
[2023-01-18 08:19] VITALS: BP 120/72; PULSE 89; RESP 20; TEMP 98; O2SAT 97
[2023-01-18] MEDS: LORazepam 2 MG TABLET PO PRN (10:49)
[2023-01-18] MEDS: HALOPERIDOL 5 MG TABLET PO PRN (10:49)
[2023-01-18] MEDS: ZOLPIDEM TARTRATE 10 MG TABLET PO PRN (22:02)
[2023-01-18] MEDS: DIVALPROEX SODIUM 500 MG DR TABLET PO SCH (22:02)
[2023-01-18] MEDS: OLANZapine 10 MG TABLET PO SCH (22:02)
[2023-01-18 22:40] VITALS: BP 124/74; PULSE 90; RESP 18; TEMP 97.9; O2SAT 99
[2023-01-19] MEDS: MAG HYDROX/AL HYDROX/SIMETH ES 30 ML SUSPENSION UDCUP PO PRN (06:47)
[2023-01-19] MEDS: NALTREXONE HCL 50 MG TABLET PO SCH (08:09)
[2023-01-19] MEDS: FLUoxetine HCL 20 MG CAPSULE PO SCH (08:10)
[2023-01-19 08:23] VITALS: BP 135/89; PULSE 91; RESP 18; TEMP 98.3; O2SAT 98
[2023-01-19] MEDS ORDERED: FLUO20CA36 PO (09:39)
[2023-01-19] MEDS ORDERED: DIVA-112 PO (09:40)
[2023-01-19] MEDS ORDERED: OLAN10TA74 PO (09:40)
[2023-01-19] MEDS ORDERED: NALT50TA6 PO (09:41)
== END 2023-01-19 15:21 | disposition home or self-care (01) | DRG 881 ==
LOC: EMS 10:34 → B3A 13:57
PROVIDERS: ADMIT Psychiatry & Neurology Psychiatry; ATTEND Psychiatry & Neurology Psychiatry
DX: F32.9 Major depressive disorder, single episode, unspecified (principal); R45.851 Suicidal ideations; F25.0 Schizoaffective disorder, bipolar type; F10.10 Alcohol abuse, uncomplicated; F19.10 Other psychoactive substance abuse, uncomplicated; R41.83 Borderline intellectual functioning; F17.210 Nicotine dependence, cigarettes, uncomplicated; Z20.822 Contact with and (suspected) exposure to COVID-19; G47.00 Insomnia, unspecified; F41.9 Anxiety disorder, unspecified; K59.00 Constipation, unspecified; K21.9 Gastro-esophageal reflux disease without esophagitis; E66.9 Obesity, unspecified; Z79.899 Other long term (current) drug therapy; Z68.37 Body mass index [BMI] 37.0-37.9, adult
CPT/HCPCS: 80053; 80061; 80164; 83036; 84439; 84443; 85025; 99291; J1200; J1630; J2060; J3230; J3486